=== PATIENT | female | born 1970 | race African-American/Black ===

== ENCOUNTER 2020-08-31 04:47 | Day surgery (SDC) | payer OTHER ==
[2020-08-29 12:31] VITALS: BMI 30.3
[2020-08-31 10:01] VITALS: TEMP 97.1
[2020-08-31 10:54] VITALS: BP 121/73; PULSE 69
== END 2020-08-31 10:50 | disposition home or self-care (01) ==
LOC: JASU-ENDO 04:47
PROVIDERS: ATTEND Internal Medicine Gastroenterology
PROC: 0DB98ZX Excision of Duodenum, Via Natural or Artificial Opening Endoscopic, Diagnostic (ICD-10-PCS; 2020-08-31)
PROC: 0DB78ZX Excision of Stomach, Pylorus, Via Natural or Artificial Opening Endoscopic, Diagnostic (ICD-10-PCS; 2020-08-31)
PROC: 0DJD8ZZ Inspection of Lower Intestinal Tract, Via Natural or Artificial Opening Endoscopic (ICD-10-PCS; principal; 2020-08-31 09:00)
DX: Z12.11 Encounter for screening for malignant neoplasm of colon (principal); K29.40 Chronic atrophic gastritis without bleeding; Z80.0 Family history of malignant neoplasm of digestive organs; R10.13 Epigastric pain
CPT/HCPCS: 43239; G0121; 81025; 88305-TC; 88342-TC